=== PATIENT | female | born 1985 | race American Indian/Alaskan Native ===

== ENCOUNTER 2021-07-13 18:58 | Emergency (ER) | payer BC, OTHER ==
[2021-07-13] MEDS ORDERED: Alum Hydroxide/Mag Hydroxide 15 ML, Lidocaine 2% 15 ML PO ONE ×2 (19:31)
== END 2021-07-13 20:30 | disposition home or self-care (01) ==
LOC: FB.ED 18:58
DX: K21.9 Gastro-esophageal reflux disease without esophagitis (principal); K29.70 Gastritis, unspecified, without bleeding
CPT/HCPCS: 36415; 80053; 81001; 82150; 83690; 84484; 85025; 93005; 93010; 99283; 99285-25; A9270-GY